=== PATIENT | female | born 1945 | race Hispanic/Latino ===

== ENCOUNTER 2022-01-12 09:00 | Outpatient (CLI) | payer MEDICARE ==
--- NOTE | 2022-01-12 11:08 | Ultrasound Report ---
ULTRASOUND BREAST BILATERAL COMPLETE, 01/12/2022 CLINICAL INFORMATION / INDICATION: Z85.3 PERSONAL HX OF MALIGNANT NEOPLASM OF BREAST. TECHNIQUE: Complete sonographic evaluation of all 4 quadrants and retroareolar region was performed. COMPARISON: None. FINDINGS: In the 12:00 position of the right breast there is a 3 mm nodule questionable shadowing. This appears to be on the muscle surface. There is a retropectoral implant. In the 2:00 position of the left breast there is a 12 x 7 x 5 mm nodular density along the muscle jose face and very close to the surface of the implant.. IMPRESSION: There is a 3 mm nodule in the 12:00 position of the right breast and a 12 x 7 mm nodule i n the left breast. There are no prior imaging exams available for comparison. These are indeterminate . The patient indicates she has been advised not to have mammography. Follow up recommendation: Breast MRI to evaluate the nodular densities bilaterally. BI-RADS Category 0: INCOMPLETE. Needs additional imaging evaluation and/or prior mammograms for wade gordon. A normal or "negative" report should not preclude biopsy or follow-up of a clinically suspicious find ing. Signer Name: Anuj Simms MD Signed: 01/12/2022 11:02 AM Workstation Name: [id number]
== END 2022-01-12 09:01 | disposition home or self-care (01) ==
LOC: US 09:00
PROVIDERS: ATTEND Surgery
DX: N63.12 Unspecified lump in the right breast, upper inner quadrant (principal); N63.20 Unspecified lump in the left breast, unspecified quadrant; Z85.3 Personal history of malignant neoplasm of breast